=== PATIENT | female | born 1960 | race Caucasian/White ===

== ENCOUNTER 2018-02-05 16:49 | Emergency (ER) | payer OTHER, SELFPAY ==
[2018-02-05 16:51] VITALS: BP 139/73; PULSE 107; RESP 12; TEMP 36.1; O2SAT 100; BMI 23.1
--- NOTE | 2018-02-05 16:54 | EKG12_ITS ---
Test Reason : CHEST PAIN Blood Pressure : / mmHG Vent. Rate : 084 BPM Atrial Rate : 084 BPM P-R Int : 114 ms QRS Dur : 082 ms QT Int : 364 ms P-R-T Axes : 060 050 034 degrees QTc Int : 430 ms Normal sinus rhythm Nonspecific ST abnormality Abnormal ECG Confirmed by TERRELL PADILLA, SUSAN ([id number]), photograph editor CAMILO HOFFMANN ([id number]) on 02/07/2018 2:18:16 PM Referred By: ALEJANDRO Confirmed By:SUSAN TEJADA MD
--- NOTE | 2018-02-05 17:11 | RAD_ITS ---
STUDY: X-RAY CHEST REASON FOR EXAM: Female, 57 years old. Chest pain TECHNIQUE: 1 view COMPARISON: None. FINDINGS: The lungs are clear and expanded. There is no demonstrated pleural abnormality. Normal size heart. Normal mediastinum and britney. Normal visualized pulmonary arteries. Normal visualized aortic arch and descending thoracic aorta. Normal visualized thoracic spine. Normal visualized ribs, clavicles, and shoulders. There is no demonstrated abnormality of the visualized soft tissue structures of the upper abdomen. RAD/Chest 1 View (Portable) IMPRESSION: Normal x-ray examination of the chest. Electronically Signed: Key Golden MD at 17:29 EST , Service support ,
[2018-02-05 17:13] VITALS: O2SAT 99
--- NOTE | 2018-02-05 17:13 | NURSING ---
NO OLD EKGS
[2018-02-05 17:14] LABS: Absolute Lymphocyte Count 3.96 X10^3/ul (0.83-4.51); Absolute Neutrophil Count 3.3 X10^3/uL (2.0-7.7); Basophil# 0.02 X10^3/uL; Basophil% 0.2 % (0-1); Eosinophil# 0.17 X10^3/uL; Eosinophils% 2.1 % (0-5); Hematocrit 39.2 % (37-47); Hemoglobin 13.1 g/dl (12.0-15.0); Lymphocyte # 3.96 X10^3/ul (4.0); Lymphocyte % 48.8 % (19-41); Mean Corp Hgb Conc 33.4 g/gl (32-36); Mean Corpuscular Hgb 29.3 pg (27.0-32.0); Mean Corpuscular Volume 87.7 fL (81-99); Mean Platelet Vol. 10.3 fl (6.2-12.0); Monocyte# 0.62 X10^3/uL; Monocyte% 7.6 % (0-10); Neutrophil # 3.34 X10^3/uL (2.7-7.7); Neutrophil % 41.2 % (47-70); Platelet Count 267 K/mm3 (150-450); RBC Distribution Width CV 13.4 % (11.6-14.6); RBC Distribution Width SD 43.2 fl (35.1-43.9); Red Blood Count 4.47 M/mm3 (4.2-5.4); White Blood Count 8.1 K/mm3 (4.4-11.0)
[2018-02-05 17:16] LABS: POSITIVE COUNT NO; POSITIVE DIFFERENTIAL NO; POSITIVE MORPHOLOGY NO
[2018-02-05 17:27] LABS: Anion Gap 9 (5-15); BUN 15 mg/dL (7-18); BUN/Creat Ratio 18.8 RATIO (10-20); Calcium,Total 9.3 mg/dL (8.5-10.1); Chloride 105 mmol/L (98-107); EST Glomerular Filtration Rate 79 mL/min (>60); Est Glom Filt Rate - Afr Amer 95 mL/min (>60); Estimated Creatinine Clearance 75.45 ml/min; Glucose 100 mg/dL (74-106); Potassium 3.2 mmol/L (3.5-5.1); Sodium Level 139 mmol/L (136-145)
--- NOTE | 2018-02-05 17:40 | ED.VISSUMM ---
- ER Visit Summary Date of Service: 02/05/18 Chief Complaint: Left-sided chest pain History of Present Illness: The patient is a 57 F who presents for intermittent left-sided chest pain. Onset was today while shopping. Pain is in the left chest and radiates into the left upper shoulder. It is worse with twisting of the torso. It resolves if patient remains still. She denies any injury. It is dull in quality. Patient also has heartburn. Denies shortness of breath, cough, abdominal pain, nausea or vomiting. No history of prior coronary artery disease, diabetes, hypertension. Patient does have high cholesterol. Positive family history of a sibling with coronary artery disease age 52. Patient is a former smoker. No history of DVT or PE, recent travel or surgery, or hormone use. Physical Examination: Vital signs: afebrile, hemodynamically stable, no hypoxia on room air General: well nourished, well developed, in no distress Skin: warm, dry, no rash, no pallor HEENT: normocephalic and atraumatic; PERRL, EOMI, moist mucous membranes Cardiovascular: regular rate and rhythm without murmurs, no peripheral edema, 2+ pulses all distal extremities, no chest wall tenderness, no rash Respiratory: No increased work of breathing, lungs are clear to auscultation bilaterally, no rales, rhonchi or wheezing Abdominal: Abdomen is soft, nontender with normoactive bowel sounds, no guarding or rebound, no masses MSK: Moves all extremities, no deformities, normal strength, no tenderness to the back Neuro: Awake and alert, oriented ?4. No facial droop, sensation and motor function intact and symmetric Test Results:] Abnormal Lab Results 02/05/18 02/05/18 02/05/18 17:05 17:05 17:51 WBC 8.1 RBC 4.47 Hgb 13.1 Hct 39.2 MCV 87.7 MCH 29.3 MCHC 33.4 RDW 13.4 RDW Differential 43.2 Plt Count 267 MPV 10.3 Immature Gran % (Auto) 0.100 Neut % (Auto) 41.2 L Lymph % (Auto) 48.8 H [place] % (Auto) 7.6 Eos % (Auto) 2.1 Baso % (Auto) 0.2 Absolute Neuts (auto) 3.3 Absolute Lymphs (auto) 3.96 Total Counted Not Reportable D-Dimer Quant (PE/DVT) 0.46 Sodium 139 Potassium 3.2 L Chloride 105 Carbon Dioxide 25.0 Anion Gap 9 BUN 15 Creatinine 0.80 Estim Creat Clear Calc 75.45 Est GFR (MDRD) Af Amer 95 Est GFR (MDRD) Non-Af 79 BUN/Creatinine Ratio 18.8 Glucose 100 Calcium 9.3 Troponin I < 0.015 Clinical Impression(s) from Imaging Studies Chest X-Ray 02/05/18 17:11 IMPRESSION: Normal x-ray examination of the chest. Electronically Signed: Key Golden MD at 17:29 EST , Service support , Medications Given Discontinued Medications Al Hydroxide/Mg Hydroxide (Mylanta Ii) 30 ml PO X1 ONE Stop: 02/05/18 18:07 Last Admin: 02/05/18 18:25 Dose: 30 ml Aspirin (Aspirin) 324 mg PO X1 ONE Stop: 02/05/18 17:41 Last Admin: 02/05/18 17:46 Dose: 324 mg Lidocaine HCl (Xylocaine Viscous) 15 ml PO X1 ONE Stop: 02/05/18 18:07 Last Admin: 02/05/18 18:25 Dose: 15 ml Emergency Department Course and Treatment: She is chest pain is only when she moves her torso and is gone if she stays still. This does not seem consistent with acute coronary syndrome. Chest pain workup was performed, with EKG showing sinus rhythm without any or ectopy. Troponin negative. Labs remarkable only for mild hypokalemia of 3.2. D-dimer was included and was within normal limits. Patient received aspirin upon initial presentation. She was also given a GI cocktail. On reevaluation she had no complaints. Because her chest pain seems more consistent with a chest wall inflammation, she will use anti-inflammatories for pain. No further chest pain workup indicated at this time. Heart score is 3. Discussed the hypokalemia with the patient. She states she normally has issues with hyperkalemia, and she will resume potassium containing food and follow-up with her doctor. Discharged home with return precautions. Treatment Plan: [] Disposition: [] Impression: Chest wall pain, mild hypokalemia This note was generated with [employer] dictation software. It may contain incorrect words, spelling, and punctuation that were not noted in review of the chart prior to signing ED Disposition - Plan for ED Patient: Disposition: Home or Assisted Living Chief Complaint: Chest Pain Instructions: ED Chest Pain NonCardiac, ED Chest Pain Atypical Unkn Cause Referrals: Jarad Castillo MD [Primary Care Provider] - 3-5 Days if not improving Additional Instructions: Use [id number]-[id number] medications such as ibuprofen or naproxen as needed for chest discomfort. If it feels more like heartburn, try [id number]-[id number] antacids. If you have any worsening of your condition or any new concerning symptoms, please return immediately to the emergency department for another evaluation.
[2018-02-05] MEDS: Aspirin 325 MG Tablet 324 MG PO (17:46)
[2018-02-05 18:10] LABS: D-Dimer Quantitative (DVT/PE) 0.46 FEU/ug/m (0.27-0.49)
[2018-02-05 18:13] VITALS: PULSE 80; RESP 19; O2SAT 99
[2018-02-05] MEDS: Mag Hydrox/Al Hydrox/Simeth 30 ML UDC PO (18:25)
--- NOTE | 2018-02-05 19:10 | ED.DEP ---
ED Disposition - Plan for ED Patient: Disposition: Home or Assisted Living Chief Complaint: Chest Pain Instructions: ED Chest Pain Atypical Unkn Cause, ED Chest Pain NonCardiac Referrals: Jarad Castillo MD [Primary Care Provider] - 3-5 Days if not improving Additional Instructions: Use rryn-ute-[id number] medications such as ibuprofen or naproxen as needed for chest discomfort. If it feels more like heartburn, try vxet-hyk-tweppdf antacids. If you have any worsening of your condition or any new concerning symptoms, please return immediately to the emergency department for another evaluation.
[2018-02-05 19:39] VITALS: BP 115/67; PULSE 75; PULSE 79; RESP 15; RESP 18
== END 2018-02-05 19:45 | disposition home or self-care (01) ==
PROVIDERS: Emergency Provider Emergency Medicine; Family Provider Family Medicine; PCP Family Medicine
DX: R07.89 Other chest pain (principal); E87.6 Hypokalemia; Z87.891 Personal history of nicotine dependence
CPT/HCPCS: 71045; 80048; 84484; 85025; 85379; 93005; 99285; A4216